=== PATIENT | female | born 1990 | race Caucasian/White ===

== ENCOUNTER 2022-01-19 22:05 | Emergency (ER) | payer OTHER ==
[2022-01-19 22:14] VITALS: BP 135/72
--- NOTE | 2022-01-19 22:27 | ED Physician Documentation ---
PD HPI UPPER EXT INJURY - Stated complaint Stated Complaint: RT THUMB INJ - Chief complaint Chief Complaint: Ext Problem - History obtained from History obtained from: Patient - Additonal information Additional information: Patient is a 31-year-old female with no significant past medical history presen ting for evaluation of right hand pain after falling at 8:30 PM. Patient was rollerskating during practice when she fell with her right hand outstretched. She has pain To the area of the thenar eminence. She is right-hand dominant. She did continue with her rollerskating practice but reported having a pain Right away. She has not taken any medications for the pain. Pain is sharp and worse with movement. It does not radiate elsewhere. Review of Systems Constitutional: denies: Fever Nose: denies: Congestion Cardiac: denies: Chest pain / pressure Respiratory: denies: Dyspnea GI: denies: Abdominal Pain Skin: denies: Laceration (s) Musculoskeletal: reports: Extremity pain Neurologic: denies: Head injury PD PAST MEDICAL HISTORY - Past Medical History Past Medical History: No Cardiovascular: None Respiratory: None Neuro: None Endocrine/Autoimmune: None GI: None SOFTWARE ENGINEERING ASSOCIATE MANAGER: None : None HEENT: None Psych: None Musculoskeletal: None Derm: None - Past Surgical History Past Surgical History: Yes General: Cholecystectomy /SOFTWARE ENGINEERING ASSOCIATE MANAGER: Breast reduction - Present Medications Home Medications: Ambulatory Orders Medication Instructions Recorded Confirmed No Known Home Medications 01/19/22 01/19/22 - Allergies Allergies/Adverse Reactions: Allergies Allergy/AdvReac Type Severity Reaction Status Date / Time No Known Drug Allergies Allergy Verified 01/19/22 22:14 - Social History Does the pt smoke?: No Smoking Status: Never smoker Does the pt drink ETOH?: Yes Does the pt have substance abuse?: No - Immunizations Immunizations are current?: Yes - POLST Patient has POLST: No PD ED PE NORMAL - General General: Alert and oriented X 3, No acute distress, Well developed/nourished - HEENT HEENT: Atraumatic - Respiratory Respiratory: No respiratory distress - Derm Derm: Normal color, No rash - Extremities Extremities: No deformity, No edema, Other (Tenderness to right thenar eminence with no visible deformity, full range of motion of thumb with no bony tenderness, Sensation intact, strong radial pulse, cap refill brisk, No snuffbox tenderness). No: No tenderness to palpate - Psych Psych: Normal mood PD ED PE EXPANDED - Extremities ROMA UE/Hands Visual: 1 - tenderness Results - Vitals Vitals: Vital Signs - 24 hr 01/19/22 01/19/22 22:12 22:15 Temperature 36.2 C L Heart Rate 72 Respiratory 16 16 Rate Blood Pressure 135/72 H O2 Saturation 97 Oxygen O2 Source Room air PD MEDICAL DECISION MAKING - ED course Complexity details: reviewed results, d/w patient ED course: Patient evaluated for injury to her right hand.No visible deformity on exam and patient is able to range of motion at all joints in the right hand.X-rays negative for fracture dislocation. Injury likely related to contusion or sprain from fall. Offered Robin wrap which patient declined. Patient is aware of continuing with supportive care. Departure - Departure Disposition: 01 Home, Self Care Clinical Impression: Injury of right hand Qualifiers: Encounter type: initial encounter Qualified Code(s): S69.91XA - Unspecified injury of right wrist, hand and finger(s), initial encounter Fall from [employer] Qualifiers: Encounter type: initial encounter Qualified Code(s): V00.121A - Fall from non-in-line roller[employer], initial encounter Condition: Stable Instructions: ED Sprain Hand Comments: Kelly - Your evaluated for an injury to your right hand. At the x-ray did not show a broken bone or a bone that is out of place. You likely have a sprain or bruise to this area from the fall. Please use ice and compression with an Robin wrap as needed for pain. You can also use Motrin or Tylenol. Please return to the emergency department with any concerns such as swelling, redness, worsening pain. Discharge Date/Time: 01/19/22 23:25
[2022-01-19] MEDS: ACETAMINOPHEN 325 MG TABLET PO STA (22:39)
--- NOTE | 2022-01-19 22:48 | XRAY Report ---
PROCEDURE: Hand 3 View RT INDICATIONS: fall/pain TECHNIQUE: 3 views of the hand(s) acquired. COMPARISON: None. FINDINGS: Bones: No fractures or dislocations. No suspicious bony lesions. Soft tissues: No suspicious soft tissue calcifications. IMPRESSION: 1. No fracture or dislocation. Reviewed by: Henry Leonardo MD on 01/19/2022 10:47 PM PDT Approved by: Henry Leonardo MD on 01/19/2022 10:47 PM PDT Station ID: [id number]
== END 2022-01-19 23:25 | disposition home or self-care (01) ==
LOC: ED 22:05
DX: S69.91XA Unspecified injury of right wrist, hand and finger(s), initial encounter (principal); V00.121A Fall from non-in-line roller-skates, initial encounter
CPT/HCPCS: 73130; 99282; 99283; A9270